=== PATIENT | male | born 1970 | race Caucasian/White ===

== ENCOUNTER → 2019-12-21 | Outpatient (CLI) | payer OTHER ==
[~2019-12-21] MED LIST: ALLO300T2 GT; ATOR20TA66 PO; HYDR1TAB PO; TRAM50TA2 PO
--- NOTE | 2019-12-21 16:13 | Diagnostic Imaging Report ---
PROCEDURE: MRI right joint lower extremity without contrast. TECHNIQUE: Multiplanar, multisequence non contrast-enhanced MRI of the right ankle was accomplished. INDICATION: Right ankle pain. COMPARISONS: None available. FINDINGS: TENDONS: Achilles is normal. Short segment split longitudinal tear of the peroneus brevis tendon involving the retromalleolar and inframalleolar segment. Its distal insertion on the base of the fifth is intact. The peroneus longus is normal. Posterior tibialis has mild tenosynovitis and thickening of its distal insertion but remains intact. Flexor digitorum longus and flexor hallucis longus are intact. Anterior tibialis, extensor hallucis longus and extensor digitorum longus are normal. LIGAMENTS: Anterior and posterior distal tibiofibular ligaments are intact. Anterior talofibular, calcaneofibular and posterior talofibular ligaments are normal. Medial deltoid ligamentous complex is intact. Spring ligament is ill-defined and likely partially torn or stretched. BONES AND CARTILAGE: T2 hyperintense signal within the central aspect of the calcaneus and in the opposing plantar aspect of the central talus on either side of the sinus tarsi. No fracture. Dorsal beaking of the talus is present. No osteochondral lesion of the talar dome. SOFT TISSUES: No evidence of plantar fasciitis. No abnormal soft tissue scar/fibrosis within the tarsal canal/sinus tarsi or tarsal tunnel. No ankle joint effusion. IMPRESSION: 1. Near-complete loss of the sinus tarsi space is likely due to high-grade partial or full-thickness tearing of the spring ligament. Posterior tibialis tendon remains with mild tendinopathy at its distal insertion. 2. 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 Its distal insertion on the base of the fifth remains intact. Dictated by: Dictated on workstation # [id number]
--- NOTE | 2019-12-21 16:14 | Diagnostic Imaging Report ---
PROCEDURE: MRI right lower extremity without contrast. TECHNIQUE: Multiplanar, multisequence non contrast-enhanced MRI of the right lower extremity was accomplished. INDICATION: Hindfoot pain. COMPARISON: MRI of the ankle performed concurrently. FINDINGS: Bones: No fracture or bone marrow edema within the midfoot or forefoot. Visualized aspects of the hindfoot are more completely evaluated on MRI of the ankle performed concurrently. Hallux valgus deformity measured approximately 30 degrees. Associated lateral subluxation of the hallux sesamoids is seen. No osseous erosions. Soft tissues: There is stretching and elongation of the medial capsule of the first MTP due to hallux valgus. A small amount of fluid is present in the first intermetatarsal web space, suggestive of mild bursitis. No features of Cannon's neuroma. Intrinsic musculature of the foot is normal in bulk. No nodular thickening of the plantar fascia to indicate fibromatosis. Lisfranc ligamentous complex is intact. IMPRESSION: 1. Moderate hallux valgus deformity. 2. No additional osseous or soft tissue abnormality within the right midfoot or forefoot. Dictated by: Dictated on workstation # [id number]
== END ==
LOC: RAD 14:33
PROVIDERS: ATTEND Nurse Practitioner Family
DX: S86.311A Strain of muscle(s) and tendon(s) of peroneal muscle group at lower leg level, right leg, initial encounter (principal); M20.11 Hallux valgus (acquired), right foot
CPT/HCPCS: 73721